=== PATIENT | male | born 1930 | race Two or more races ===

== ENCOUNTER 2017-09-14 14:51 | Inpatient (IN) | payer MEDICARE, MEDICAID ==
[~2017-09-14] VITALS: Ht 177.8 cm; Wt 88.9 kg
[~2017-09-14 14:51] MED LIST: IBUP-2030 PO; LEVVL SQ; METF500T4 PO; METO1TAB40 PO; TAMS0.4C31 PO; TEMA15CA PO; VALS160T2 PO
[2017-09-14] MEDS ORDERED: CLINDAMYCIN 600 MG in DEXTROSE 5% WATER 50 ML IV ONE (16:15)
[2017-09-14] MEDS ORDERED: CLINDAMYCIN 600MG PREMIX 50 ML IV ONE (16:30)
[2017-09-14 16:36] LABS: BASOPHILS % 1.1 % (0.0-2.0); EOSINOPHILS % 6.8 % (0.0-5.0); HEMATOCRIT. 36.8 % (42.0-52.0); HEMOGLOBIN. 12.6 g/dL (14.0-18.0); LYMPHOCYTES % 16.8 % (20.0-50.0); MEAN CORPUSCULAR HEMOGLOBIN 29.9 pg (28.0-32.0); MEAN CORPUSCULAR VOLUME 87.3 fL (80.0-94.0); MEAN PLATELET VOLUME 7.8 fl (7.4-10.4); MONOCYTES % 12.7 % (2.0-8.0); NEUTROPHILS % 62.6 % (40.0-76.0); PLATELET 254 x1000/uL (130-400); RED BLOOD CELL COUNT 4.21 mill/uL (4.7-6.1); RED CELL DISTRIBUTION WIDTH 13.6 % (11.6-14.6)
[2017-09-14 16:38] LABS: CHLORIDE 106 mEq/L (98-107)
[2017-09-14 16:44] LABS: PROTHROMBIN TIME 10.8 sec (9.4-11.6)
[2017-09-14] MEDS ORDERED: NITROGLYCERIN 0.4MG TABLET SL SL PRN (19:30)
[2017-09-14] MEDS ORDERED: IPRATROPIUM/ALBUTEROL 0.5-3(2.5)MG/3ML NEB INH PRN (19:30)
[2017-09-14] MEDS ORDERED: ZOLPIDEM TARTRATE 5MG TABLET PO PRN (19:30)
[2017-09-14] MEDS ORDERED: CLONIDINE 0.1MG TABLET PO PRN (19:30)
[2017-09-14] MEDS ORDERED: DIPHENHYDRAMINE 50MG/ML VIAL IV PRN (19:30)
[2017-09-14] MEDS ORDERED: DEXTROSE 50% WATER 50ML SYRINGE IV PRN (19:30)
[2017-09-14] MEDS ORDERED: ONDANSETRON HCL 4MG/2ML VIAL IV PRN (19:30)
[2017-09-14] MEDS ORDERED: ACETAMINOPHEN 325MG TABLET PO PRN (19:30)
[2017-09-14] MEDS ORDERED: TRAMADOL 50MG TABLET PO PRN (19:30)
[2017-09-14] MEDS ORDERED: MAGNESIUM/ALUMINUM HYDROXIDE/SIMETHICONE 30ML UDC PO PRN (19:30)
[2017-09-14] MEDS ORDERED: DOCUSATE SODIUM 100MG CAPSULE PO PRN (19:30)
[2017-09-14] MEDS ORDERED: GUAIFENESIN 200MG/10ML SUGAR FREE UDC PO PRN (19:30)
[2017-09-14] MEDS ORDERED: MORPHINE SULFATE 4 MG/ML CPJ (NOT FOR IM USE) IV PRN (19:30)
[2017-09-14 20:30] VITALS: BP 143/55
[2017-09-14 21:20] VITALS: BP 143/55
[2017-09-14] MEDS ORDERED: NA PHOS,M-B/NA PHOS,DI-BA ENEMA 118ML PR PRN (21:39)
[2017-09-15] VITALS: BP 157/80
[2017-09-15] MEDS: LISINOPRIL 20MG TABLET PO SCH ×3 (00:25→20:33)
[2017-09-15] MEDS: PIPERACILLIN/TAZ 3.375G PREMIX 50 ML IV SCH ×3 (01:37→17:09)
[2017-09-15] MEDS ORDERED: VANCOMYCIN 1500MG in DEXTROSE 5% WATER 250ML IV NR (03:00)
[2017-09-15 04:00] VITALS: BP 137/68
[2017-09-15] MEDS: BLOOD SUGAR DIAGNOSTIC STRIP TEST SCH ×4 (06:25→20:33)
[2017-09-15] MEDS: INSULIN LISPRO 100 UNITS/ML SUBCUT SCH ×4 (06:30→21:28)
[2017-09-15 08:00] VITALS: BP 160/74
[2017-09-15] MEDS: PANTOPRAZOLE SODIUM 40 MG/VIAL IV SCH (09:40)
[2017-09-15] MEDS: ASPIRIN 325MG EC TABLET PO SCH (09:42)
[2017-09-15] MEDS: ZINC SULFATE 220 MG ( 50 ) CAPSULE PO SCH (09:43)
[2017-09-15] MEDS: TAMSULOSIN HCL 0.4MG SR CAPSULE PO SCH (09:43)
[2017-09-15] MEDS: ENOXAPARIN 40MG/0.4ML SYR SUBCUT SCH (09:44)
[2017-09-15 12:00] VITALS: BP 149/77
[2017-09-15 16:24] VITALS: BP 139/71
[2017-09-15] MEDS ORDERED: VANCOMYCIN 1 G PREMIX 200 ML IV SCH (18:00)
[2017-09-15 20:00] VITALS: BP 131/55
[2017-09-15] MEDS ORDERED: INSULIN GLARGINE UD 100 UNITS/ML SYR SUBCUT SCH (22:00)
[2017-09-16] VITALS: BP 146/67
[2017-09-16] MEDS: PIPERACILLIN/TAZ 3.375G PREMIX 50 ML IV SCH ×2 (03:50→09:50)
[2017-09-16 04:00] VITALS: BP 160/72
[2017-09-16] MEDS: INSULIN LISPRO 100 UNITS/ML SUBCUT SCH ×2 (06:38→12:47)
[2017-09-16] MEDS: BLOOD SUGAR DIAGNOSTIC STRIP TEST SCH ×2 (06:38→12:27)
[2017-09-16 08:00] VITALS: BP 169/79
[2017-09-16] MEDS: LISINOPRIL 20MG TABLET PO SCH (09:49)
[2017-09-16] MEDS: ZINC SULFATE 220 MG ( 50 ) CAPSULE PO SCH (09:49)
[2017-09-16] MEDS: PANTOPRAZOLE SODIUM 40 MG/VIAL IV SCH (09:50)
[2017-09-16] MEDS: ENOXAPARIN 40MG/0.4ML SYR SUBCUT SCH (09:51)
[2017-09-16] MEDS: TAMSULOSIN HCL 0.4MG SR CAPSULE PO SCH (09:55)
[2017-09-16] MEDS: ASPIRIN 325MG EC TABLET PO SCH (09:57)
[2017-09-16 12:00] VITALS: BP 142/83
[2017-09-16 14:19] VITALS: BP 126/80
[2017-09-17] MEDS ORDERED: FAMOTIDINE 20MG TABLET PO SCH (09:00)
== END 2017-09-16 15:05 | disposition home or self-care (01) | DRG 602 ==
LOC: ER 14:51 → 8WST 18:48 → EDBEDREQ 18:50 → SUPCPDRO 19:24 → ENRESERV 19:41
PROVIDERS: ADMIT Internal Medicine; ATTEND Internal Medicine
DX: L03.115 Cellulitis of right lower limb (principal); G93.40 Encephalopathy, unspecified; E88.09 Other disorders of plasma-protein metabolism, not elsewhere classified; L97.919 Non-pressure chronic ulcer of unspecified part of right lower leg with unspecified severity; E83.51 Hypocalcemia; I83.219 Varicose veins of right lower extremity with both ulcer of unspecified site and inflammation; F03.90 Unspecified dementia, unspecified severity, without behavioral disturbance, psychotic disturbance, mood disturbance, and anxiety; I10 Essential (primary) hypertension
CPT/HCPCS: 36415; 71045; 73590; 80053; 80061; 82962; 83036; 85025; 85610; 93005; 93970; 96365; 99285; C9113; J1650; J1815; J2543; J3370; J3490; J7050; J7060

== ENCOUNTER 2018-01-20 10:12 | Emergency (ER) | payer MEDICARE, MEDICAID ==
[~2018-01-20] VITALS: Ht 170.2 cm; Wt 91.0 kg
[~2018-01-20 10:12] MED LIST changes: -METF500T4 PO; +METF500T6 PO
[2018-01-20] MEDS ORDERED: BACITRACIN ZINC OINT UDPKT TOP ONE (15:45)
[2018-01-20 17:17] VITALS: BP 142/60
== END 2018-01-20 17:07 | disposition home or self-care (01) ==
LOC: ER 11:13
DX: E11.622 Type 2 diabetes mellitus with other skin ulcer (principal); L97.928 Non-pressure chronic ulcer of unspecified part of left lower leg with other specified severity; F03.90 Unspecified dementia, unspecified severity, without behavioral disturbance, psychotic disturbance, mood disturbance, and anxiety; I10 Essential (primary) hypertension; G30.9 Alzheimer's disease, unspecified; Z79.4 Long term (current) use of insulin; Z79.899 Other long term (current) drug therapy
CPT/HCPCS: 82962; 99283

== ENCOUNTER 2018-03-17 20:03 | Emergency (ER) | payer MEDICARE, MEDICAID ==
[~2018-03-17] VITALS: Ht 175.3 cm; Wt 87.0 kg
[~2018-03-17 20:03] MED LIST changes: +METF-414 PO; -METF500T6 PO
[2018-03-17 21:34] LABS: BASOPHILS % 0.4 % (0.0-2.0); HEMATOCRIT. 33.2 % (42.0-52.0); HEMOGLOBIN. 10.4 g/dL (14.0-18.0); LYMPHOCYTES % 7.3 % (20.0-50.0); MEAN CORPUSCULAR VOLUME 96.2 fL (80.0-94.0); MEAN PLATELET VOLUME 8.2 fl (7.4-10.4); MONOCYTES % 10.3 % (2.0-8.0); PLATELET 285 x1000/uL (130-400); RED BLOOD CELL COUNT 3.46 mill/uL (4.7-6.1); RED CELL DISTRIBUTION WIDTH 15.6 % (11.6-14.6)
[2018-03-17 21:39] LABS: CHLORIDE 142 mEq/L (98-107)
[2018-03-17 21:43] LABS: ETHANOL BLOOD < 10 mg/dL
[2018-03-17] MEDS ORDERED: CALCIUM CHLORIDE 1GM/10ML SYR IV ONE (22:00)
[2018-03-17] MEDS ORDERED: DEXTROSE 50% WATER 50ML SYRINGE IV ONE (22:00)
[2018-03-17] MEDS ORDERED: INSULIN REGULAR (HUMULIN R) 300UNITS/3ML IV ONE (22:00)
[2018-03-17] MEDS ORDERED: SODIUM POLYSTYRENE SULFONATE 15 G/60 ML BOT PO ONE (22:00)
[2018-03-17] MEDS ORDERED: ALBUTEROL (0.083%) 2.5MG/3ML NEB HHN ONE (22:00)
[2018-03-17] MEDS ORDERED: SODIUM BICARBONATE 8.4% 1 MEQ/ML 50ML SYR IV ONE (22:00)
[2018-03-17] MEDS ORDERED: LORAZEPAM 2MG/ML CPJ IM ONE (22:30)
[2018-03-17] MEDS ORDERED: ALBUTEROL (0.5%) 2.5MG/0.5ML NEB HHN ONE (22:57)
[2018-03-18] MEDS ORDERED: LORAZEPAM 2MG/ML CPJ IV ONE
[2018-03-18 01:39] VITALS: BP 102/49
== END 2018-03-18 01:43 | disposition home or self-care (01) ==
LOC: ER 20:54
DX: N17.9 Acute kidney failure, unspecified (principal); E87.5 Hyperkalemia; E86.0 Dehydration; I10 Essential (primary) hypertension; E11.9 Type 2 diabetes mellitus without complications; J44.9 Chronic obstructive pulmonary disease, unspecified; F03.90 Unspecified dementia, unspecified severity, without behavioral disturbance, psychotic disturbance, mood disturbance, and anxiety; Z79.4 Long term (current) use of insulin
CPT/HCPCS: 36415; 70450; 71045; 80053; 85025; 94640; 96374; 99285; G0482; J2060; J7611